=== PATIENT | female | born 1975 | race Hispanic/Latino ===

== ENCOUNTER 2019-10-08 11:07 | Emergency (ER) | payer BC ==
[~2019-10-08] VITALS: Ht 147.3 cm; Wt 90.7 kg
[2019-10-08] MEDS ORDERED: KETOROLAC TROMETHAMINE 30 MG/ML VIAL IV STA (11:37)
--- NOTE | 2019-10-08 11:44 | Emergency Department Note ---
History of Present Illnes History of Present Illness Chief Complaint: Headache History of Present Illness This is a 44 year old female . Historian: Patient Arrival Mode: Car First Mate Required: No Onset (how long ago): day(s) (6 started gradually posteriorly, nausea no vomiting no weakness or numbness hx of migraines no fever no neck pain has photophobia) Onset quality: gradual Timing of current episode: constant Progression: unchanged Chronicity: recurrent Context: Denies recent illness, Denies recent surgery, Denies recent immobilization, Denies recent travel, Denies trauma/injury, Denies new medications, Denies hx of DVT/PE, Denies non-compliance w/ medications, Denies other Relieving factors: none Exacerbating factors: other (light, noise) Associated symptoms: Reports headaches, Reports nausea/vomiting; Denies fever/chills, Denies weakness Treatments prior to arrival: none Past Medical/Family History Physician Review I have reviewed the patient's past medical and family history. Any updates have been documented here. Past Medical History Recent Fever: No Clinical Suspicion of Infectio: No New/Unexplained Change in Ment: No Past Medical History: Hypertension, Migraines Past Surgical History: Cholecysctectomy Social History Smoking Cessation: Never Smoker Alcohol Use: None Any Illegal Drug Use: No Review of Systems Review of Systems Constitutional: Denies fever EENTM: Denies eye pain, Denies blurred vision Cardiovascular: Denies chest pain, Denies palpitations Neurological: Reports headache; Denies numbness, Denies paresthesia, Denies weakness Review of other systems: All other systems negative Physical Exam Related Data Allergies: Coded Allergies: No Known Allergies (Unverified , 10/08/19) Vital signs reviewed: Yes Physical Exam CONSTITUTIONAL Constitutional: Present well-developed, Present obese HENT HENT: Present normocephalic EYES Eyes: Reports conjunctivae normal NECK Neck: Present supple PULMONARY Pulmonary: Present breath sounds normal CARDIOVASCULAR Cardiovascular: Present regular rhythm GASTROINTESTINAL Abdominal: Present soft GENITOURINARY SKIN Skin: Present warm MUSCULOSKELETAL Musculoskeletal: Absent edema NEUROLOGICAL Neurological: Present oriented x 3, Present no gross motor or sensory deficits; Absent cranial nerve deficit PSYCHOLOGICAL Psychological: Present mood/affect normal Results Laboratory Laboratory BMP Normal CBC WBC 11.1 UPT neg Lab results reviewed: Yes Imaging Imaging results reviewed: Yes Impressions CT Head neg as per Radiologist Assessment & Plan Medical Decision Making MDM SAH, Pseudotumor, Migrain, Cluster, Meningitis, COVID Reassessment Reassessment Pt felt much better after the migrain cocktail BP improved Assessment & Plan Final Impression: (1) Migraine (2) Hypertension Depart Disposition: HOME, SELF-USP Meds Active Scripts Naproxen (NAPROSYN) 500 Mg Tablet, 500 MG PO BID PRN for pain for 7 Days, #14 TAB Prov:NAEDGE GUZMAN MD 10/08/19 Butalbit/Acetamin/Caff/Codeine (Fioricet-Cod [id number] Cap) 1 Each Capsule, 1 TAB PO TID PRN for headach for 5 Days, #15 Prov:NADEGE GUZMAN MD 10/08/19 Promethazine Hcl (PROMETHAZINE HCL) 12.5 Mg Tablet, 12.5 MG PO Q8H PRN for ALLERGY for 5 Days, #15 TAB Prov:NADEGE GUZMAN MD 10/08/19 NADEGE GUZMAN MD Oct 08, 2019 11:44
[2019-10-08] MEDS ORDERED: PROMETHAZINE 12.5MG/ NACL 0.9% 12.5 MG/50 ML BAG IV ONE ×2 (11:45→12:45)
[2019-10-08] MEDS ORDERED: SODIUM CHLORIDE 0.9% 1000ML 1,000 ML IV SCH (11:45)
[2019-10-08] MEDS ORDERED: PROMETHAZINE12.5 M1 PO (12:27)
[2019-10-08] MEDS ORDERED: FIORICET-COD 51 EACH PO (12:27)
[2019-10-08] MEDS ORDERED: NAPROSYN500 MG PO (12:27)
[2019-10-08] MEDS ORDERED: KETOROLAC TROMETHAMINE 30 MG/ML VIAL ONE (12:28)
[2019-10-08] MEDS ORDERED: PROMETHAZINE HCL (IM) 25 MG/ML VIAL ONE (12:28)
[2019-10-08] MEDS ORDERED: DEXAMETHASONE SOD PHOS 10 MG/1 ML VIAL ONE (12:28)
[2019-10-08] MEDS ORDERED: SODIUM CHLORIDE 0.9% 1000ML 1,000 ML ONE (12:28)
--- NOTE | 2019-10-08 12:39 | Diagnostic Imaging Report ---
EXAMINATION: CXR 2 VIEW - HOPD INDICATION: Uncontrolled hypertension COMPARISON: None FINDINGS: PA and lateral views TUBES and LINES: None. LUNGS: Lungs are well inflated. There is no evidence of pneumonia or pulmonary edema. PLEURA: No pleural effusion or pneumothorax. HEART AND MEDIASTINUM: The cardiomediastinal silhouette is unremarkable. BONES AND SOFT TISSUES: No focal osseous lesions. Soft tissues are unremarkable. UPPER ABDOMEN: Unremarkable. IMPRESSION: No acute thoracic abnormality. Signed by: Dr. Susana Rosenberg MD on 10/08/2019 12:36 PM
[2019-10-08] MEDS ORDERED: DEXAMETHASONE SOD PHOS 10 MG/1 ML VIAL IV ONE (13:00)
--- NOTE | 2019-10-08 19:10 | Diagnostic Imaging Report ---
CT [facility] HISTORY: High blood pressure, headache COMPARISON: None. TECHNIQUE: Noncontrast axial scans were obtained from skull base to the vertex. Coronal and sagittal reconstructions obtained from the axial data. One or more of the following dose reduction techniques were used: Automated exposure control, adjustment of the mA and/or kV according to patient size, and/or utilization of iterative reconstruction technique. DISCUSSION: Scalp/Skull: Unremarkable. Brain sulci: Appropriate for patient's age. Ventricles: Normal in size and configuration. No hydrocephalus. Extra-axial spaces: No masses or fluid collections. Parenchyma: No abnormal densities. No mass, hemorrhage, or large vascular territory acute infarct. Dural sinuses: No abnormal densities. Sellar/Suprasellar region: Intact. Skull base: Intact. Incidental findings: None. IMPRESSION: No intracranial abnormalities. Signed by: Dr. Ketan Steven M.D. on 10/08/2019 7:07 PM
== END 2019-10-08 13:50 | disposition home or self-care (01) ==
LOC: FSED 11:07
DX: G43.909 Migraine, unspecified, not intractable, without status migrainosus (principal); I10 Essential (primary) hypertension
CPT/HCPCS: 70450; 71046; 80048; 81025; 85025; 99284; J1100; J1885; J2550; J7030